=== PATIENT | female | born 1940 | race Hispanic/Latino ===

== ENCOUNTER 2018-01-25 07:00 | Day surgery (SDC) | payer OTHER ==
--- NOTE | 2018-01-24 12:40 | RAD REPORT ---
EXAM DESCRIPTION: RAD - Chest Single View - 01/24/2018 12:29 pm CLINICAL HISTORY: Coronary artery disease. Chest pain. COMPARISON: CHEST SINGLE VIEW dated 06/20/2013; CHEST SINGLE VIEW dated 02/17/2009 FINDINGS: Portable technique limits examination quality. The lungs are emphysematous but grossly clear. The heart is normal in size. No displaced fractures. IMPRESSION: No acute intrathoracic process suspected.
[2018-01-24 12:46] LABS: Absolute Lymphocytes (CBC) 2.3 K/uL (0.7-4.9); Absolute Monocytes 0.5 K/uL (0.1-1.3); Absolute Neutrophil 4.3 K/uL (1.8-8.0); Basophils % 0.5 % (0-1.3); Eosinophils % 3.2 % (0-4.4); Hematocrit 35.9 % (36.0-45.0); Lymphocytes % 30.8 % (15.3-44.8); MCH 31.5 pg (27.0-35.0); MCV 90.7 fL (80-100); MPV 8.8 fL (7.6-11.3); Monocytes % 6.9 % (3.3-12.3); RBC Red Blood Cell Count 3.95 M/uL (3.86-4.86)
[2018-01-24 12:48] LABS: Protime INR 0.94
[2018-01-24 12:52] LABS: Potassium 4.1 mmol/L (3.5-5.1)
[2018-01-25] MEDS ORDERED: LIDOCAINE 1% 20 ML MDV ONE (07:03)
[2018-01-25] MEDS ORDERED: NA CHLORIDE 0.9% 100 ML IV ONE (07:03)
[2018-01-25] MEDS ORDERED: ATROPINE SULF 1 MG/10 ML SYR IV ONE (07:03)
[2018-01-25] MEDS ORDERED: HEPA 1000U/500MLS 2,000 UNIT/1,000 ML BAG IV ONE (07:03)
[2018-01-25] MEDS ORDERED: NA CHLORIDE 0.9% 0 ML ONE (07:04)
[2018-01-25] MEDS ORDERED: NA CHLORIDE 0.9% 500 ML ONE (07:17)
[2018-01-25] MEDS ORDERED: FENTANYL CITR 100 MCG/2 ML ONE (07:28)
[2018-01-25] MEDS ORDERED: MIDAZOLAM HCL 2 MG/2 ML INJ ONE (07:28)
--- NOTE | 2018-01-25 13:21 | OP ---
Surgeon: Johnson Machado MD Primary Care Physician: Dr. Deonte Vela. Procedures Performed: Right and left heart catheterization with coronary angiography and determinati on of aortic valve area. Procedure In Detail: The patient was brought to the cardiac bundle tier and labeler in a fasting state, sedated wit h Versed and fentanyl. Right femoral area was used. Right femoral artery was entered using an 18-ga uge needle, modified Seldinger technique, 4-[place] sheath. Tight femoral vein was entered using an 1 8-gauge needle, short J-wire, 7.5-[place], modified Seldinger technique. The patient had been prepare d and draped in the usual sterile fashion before. A 1% lidocaine was used to anesthetize the tissues around the artery and vein before the insertion of the devices. The right heart cath was done using a [place]-Zach catheter. Thermal dilution method was used for the cardiac output. The coronary arteri ogram was done with JL4 4-[place]ian and 3DRC 4-[place]ian for the right. The valve was crossed using a stra ight wire and a 3DRC, and at the end of the procedure, an angiogram was done of the artery. The femo ral artery was very small diameter, not diseased, but we decided to close using manual pressure for b oth the vein and the artery. Procedure Findings: The patient's cardiac output is 2.87. We did not measure the ejection fraction, but it was in the 60-65% range on echocardiography. The estimated aortic valve area was 0.63 square cm. The pulmonary artery pressure 15/7, pulmonary capillary wedge pressure 7, right atrial pressure 1, aortic pressure 109/31, LV pressure 125/15. The mean gradient on pullback 2.87 L/minute. Estima jarrett aortic valve area is 0.63. Coronary arteries are left dominant with no stenosis and our recommen dation is for her to consider transcutaneous aortic valve replacement. At the end of procedure, there were no complications. Estimated Blood Loss: 5 cc. Flour Tester: Danyelle Cortes. ANU/KYM Voice ID: [id number] Report ID: [id number]
[2018-01-25 13:26] VITALS: O2SAT 99
[2018-01-25 14:06] VITALS: BP 130/49
[2018-01-25 14:09] VITALS: TEMP 97.4
== END 2018-01-25 14:18 | disposition home or self-care (01) ==
LOC: CCL 07:00
PROVIDERS: ATTEND Internal Medicine
PROC: 4A023N8 Measurement of Cardiac Sampling and Pressure, Bilateral, Percutaneous Approach (ICD-10-PCS; principal; 2018-01-25)
PROC: B211YZZ Fluoroscopy of Multiple Coronary Arteries using Other Contrast (ICD-10-PCS; 2018-01-25)
PROC: B31SYZZ Fluoroscopy of Right Pulmonary Artery using Other Contrast (ICD-10-PCS; 2018-01-25)
PROC: B310YZZ Fluoroscopy of Thoracic Aorta using Other Contrast (ICD-10-PCS; 2018-01-25)
DX: I35.0 Nonrheumatic aortic (valve) stenosis (principal); I73.9 Peripheral vascular disease, unspecified; I10 Essential (primary) hypertension; E11.9 Type 2 diabetes mellitus without complications; E78.2 Mixed hyperlipidemia
CPT/HCPCS: 36415; 71045; 80048; 82962 ×2; 85025; 85610; 85730; 93460; 93567; 93568; C1893; J2250; J3010; J0583